=== PATIENT | male | born 1950 | race Caucasian/White ===

== ENCOUNTER 2024-01-07 22:57 | Emergency (ER) | payer MEDICARE, SELFPAY ==
[2024-01-07 23:10] VITALS: BP 85/61
[2024-01-07 23:14] LABS: % Basophils 0.6 % (0-2); % Eosinophils 2.3 % (0-6); % Immature Granulocytes 0.3 % (0-0.5); % Lymphocytes 55.1 % (20.5-51.1); % Monocytes 8.4 % (1.7-9.3); % Neutrophils 33.3 % (42.2-75.2); Absolute Basophils 0.1 10^3/uL (0-0.2); Absolute Eosinophils 0.3 10^3/uL (0-0.7); Absolute Lymphocytes 6.4 10^3/uL (1.2-3.4); Absolute Neutrophils 3.9 10^3/uL (1.4-6.5); Hematocrit 48.3 % (39.0-52.0); Hemoglobin 15.6 g/dL (13.0-18.0); Mean Corp Hgb Conc. 32.3 g/dL (33.0-37.0); Mean Corpuscular Volume 86.7 fL (80.0-94.0); Mean Platelet Volume 10.4 fL (7.4-10.4); Nucleated Red Blood Cells % 0 % (-); Platelet Count 246 10^3/uL (130-400); Red Blood Cell Count 5.57 10^6/uL (4.70-6.10); White Blood Cell Count 11.7 10^3/uL (4.8-10.8)
[2024-01-07 23:15] VITALS: BP 45/14
[2024-01-07 23:24] VITALS: BP 221/137
[2024-01-07 23:26] VITALS: BP 215/124
[2024-01-07 23:30] VITALS: BP 193/152
[2024-01-07 23:30] LABS: ALT (SGPT) 24 U/L (0-50); AST (SGOT) 36 U/L (17-59); Albumin 5.2 g/dl (3.5-5.0); Alkaline Phosphatase 128 U/L (38-126); Blood Urea Nitrogen 38 mg/dl (9-20); Calcium 9.4 mg/dl (8.4-10.2); Carbon Dioxide 18 mmol/L (22-30); Chloride 106 mmol/L (98-107); Glucose 265 mg/dl (70-99); Potassium 4.2 mmol/L (3.5-5.1); Sodium 139 mmol/L (135-145); Total Bilirubin 0.6 mg/dl (0.2-1.3); eGFR 39.75
[2024-01-07 23:41] LABS: NT-proBNP 1310 pg/ml; Troponin I 0.107 ng/ml
--- NOTE | 2024-01-07 23:58 | ED.GENMED ---
History of Present Illness
<Alcides Moffett, DO - Last Filed: 01/09/24 22:42>
General
Chief Complaint: Breathing Problem
Source: family and ambulance crew
Exam Limitations: clinical condition
Time Seen by Provider: 01/07/24 23:00
Nursing documentation reviewed up to this point in time: agreed with
Travel History
Have you had any contact with someone who has COVID-19?: Unable to Answer
Do you have any symptoms of coronavirus? Fever > 100 degrees, chills, cough, shortness of breath, sore throat, loss of taste or smell, muscle aches, or headache?: Unable to Answer
History of Present Illness
History of Present Illness:
73-year-old male presents with worsening dyspnea for the last 3 days. Son states that the shortness of breath waxed and waned but tonight it was severe. They called 911. Upon arrival EMS found the patient tripoding, his oxygenation approximately
70% on room air. Patient extremely diaphoretic. He was put on CPAP and route to the hospital but that did not help. Upon arrival patient was very dyspneic, gasping for air. He was quickly switched to BiPAP which helped slightly. Son arrived and
was able to tell us that patient was a full code and he stated patient would not want intubation. We prepared for rapid sequence intubation. Respiratory at the bedside, suction and hand, patient's mouth was full of foam. Through extensive
suctioning, we were able to get the intubation. Patient went into cardiac arrest during the intubation. He received epinephrine and bicarb. He was cardioverted for V. tach. See procedure note for full details of the arrest. When patient was
stabilized, he was brought over to CAT scan for a stat PE study. We did start heparin for suspicion of PE. CT scan showed Large bilat consolidation prob pneumonia, edema less likely but does have interstitial edema. No dissection. Intraosseous
placed in the left tibial plateau for extra access. Right IJ central line placed. We began cooling protocol.
Son states that patient has hypertension and hyperlipidemia. He is 'prediabetic '. Son states that patient is on '15 medications 'he is unsure of what they are. He will try to get us a list.
Vital signs are unstable. Patient hypoxic
Nursing note reviewed. I agree with nursing documentation up to this point in time.
Home Meds and allergies reviewed.
NUMBER AND COMPLEXITY OF PROBLEMS ADDRESSED AT THE ENCOUNTER
� Chronic conditions affecting care: ACS
� Acute Exacerbation and/or Progression of Chronic Illness:
� Differential Diagnosis includes: CHF, pneumonia, pulmonary embolus, ACS
AMOUNT AND/OR COMPLEXITY OF DATA TO BE REVIEWED AND ANALYZED
I performed an independent evaluation of the following and my interpretation is:
EKG: Numerous amounts of V. tach on the monitor.
CT: Large bilat consolidation prob pneumonia, edema less likely but does have interstitial edema. No dissection
CTA CHEST
IMPRESSION:
1. Adequate technical study. No acute pulmonary embolism.
2. No thoracic aortic aneurysm or acute aortic dissection. Dense consolidation in the lung bases and scattered areas of groundglass opacities compatible with infection and/or aspiration. Right main stem intubation. Moderate pulmonary edema
Incidentals:
-Calcified coronary atherosclerosis
- No acute osseous abnormality.
- No acute abnormality within the visualized abdomen.
- No thoracic lymphadenopathy or suspicious lymph nodes.
X-rays: Right mainstem intubation corrected
Ultrasound:
Laboratory Studies: Troponin elevated, proBNP 1300, white blood cell count of 11.7
Other:
Review of other/old records: No old records available
Clinical information was obtained by an independent historian: Son, present at the bedside is able to give some history
Prescriptions/Medications Considered but not given:
Further testing considered but not performed:
RISK OF COMPLICATIONS AND/OR MORBIDITY OR MORTALITY OF PATIENT MANAGEMENT
Social determinants of health affecting care: Good Social Support
Discussion with other providers: Dr. Faust, cardiology aware of patient's condition.
Escalation of care including admission/observation vs risk of discharge considered: Patient will be admitted to the ICU
CRITICAL CARE NOTE:
Critical care statement: A total of 55 minutes of critical care time was provided for this patient. This time is separate from time utilized to perform the aforementioned documented procedures. Aggregate critical care time includes only time
during which I was engaged in work directly related to the patient's care, as described above, whether at the bedside or elsewhere in the Emergency Department.
Total Time (exclusive of procedures):55
Update:
Phy Exam
<Alcides Moffett DO - Last Filed: 01/09/24 22:42>
General Physical Exam
General Presentation: severe distress
General age: appears older than age
General Skin: cyanotic, diaphoretic and mottled
General Habitus: obese
General Mental: other (Obtunded)
General Hydration: appears well hydrated
General Chronic Disability: other (Sternotomy scar)
Cardiovascular Exam
Cardiovascular Exam: tachycardia
Pulmonary Exam
Pulmonary Exam: accessory muscle use and generalized wheezing
Respiratory Effort: poor respiratory effort and tachypnea
Oxygen Status: bagged endotracheal tube, BiPAP, CPAP and ventilator
Respirations: accessory muscle use, labored, moderate effort and retractions
Breath Sounds: Wheeze: generalized
Neurological Exam
Neurological Exam: non verbal
Musculoskeletal Exam
Musculoskeletal Exam: full ROM
Skin Exam
Skin Exam: diaphoresis, mottled and warmth
Psychiatric Exam
Psychiatric Exam: labile
Scores
<Alcides Moffett DO - Last Filed: 01/09/24 22:42>
Heart Failure Risk
Heart Failure Risk Score: Not Applicable
Course
<Alcides Moffett DO - Last Filed: 01/09/24 22:42>
Orders/Labs/Results
Orders:
Orders
01/07/24 22:59
Cardiac Monitoring- Treatment ONCE
IV Insert/Care/Rem.- Treatment PRN
CR Chest Portable - 1 View Urgent
Comment:
Reason For Exam: sob
Reason Study Needs to be Portable: Patient Unstable
O2 Therapy [RESP] Urgent
Titrate/Wean O2 to maintain O2 sat greater than (%): 93
Special Instructions: TO MAINTAIN CONTINOUS PULSE OX SATS > OR = 93%
Pulse Ox/spot Check [RESP] Urgent
Quantity: 1
Special Instructions: ON ROOM AIR
01/07/24 23:01
EKG- Treatment ONCE
ABG [Arterial Blood Gas] Urgent
%Oxygen/Room Air: 75
COVID-19 Antigen Urgent
Source: Nasal Swab
Urinalysis Reflex To Culture Urgent
Date Specimen was Collected: 01/08/24
Time Specimen was Collected: 01:58
Influenza A+B Rapid Molecular Urgent
MAITE Source: Nasal Swab
Specimen Description:
01/07/24 23:09
Complete Blood Count/With Diff Urgent
Comprehensive Metabolic Panel Urgent
Magnesium Urgent
Comment: ADD ON
NT-proBNP Urgent
Troponin I Urgent
01/07/24 23:15
Lactate Level [Lactic Acid] Urgent
Blood Culture Q30M
MAITE Source: Blood/Venous
Specimen Description:
01/07/24 23:26
NORepinephrine 4 MG/250 ML [Levophed] 4 mg in 250 ml .ROUTE .STK-MED
NORepinephrine [Levophed] 4 mg .ROUTE .STK-MED ONE
01/07/24 23:29
Esmolol 2500 mg/250 ml [Brevibloc 2500 mg] 2,500 mg in 250 ml .ROUTE .STK-MED
Heparin 35262 Units/250 ml 25,000 units in 250 ml .ROUTE .STK-MED
01/07/24 23:30
CT Chest Pe Study Urgent
Comment:
Reason For Exam: sob
01/07/24 23:41
Heparin 8,900 units IV NOW STA
01/07/24 23:[address] Non Medication Order As Directed
Physician Order: PTT 6 hours after initial start of Heparin infusion
01/07/24 23:45
Blood Culture Q30M
MAITE Source: Blood/Venous
Specimen Description:
Amiodarone [Cordarone] 900 mg DEXTROSE 5% PVC-free BAG [D5W PVC-free BAG] 500 ml IV PER PROTOCOL
Initial Dose in mg/min:: 1
Duration of initial dose (hours):: 6
Subsequent dose in mg/min:: 0.5
Duration of subsequent dose (hours):: 18
Maximum dose in mg/min:: 1
Hold and notify provider if:: Heart rate < 60 BPM or SBP < 90 mmHg or MAP < 60 mmHg
Heparin 35692 Units/250 ml 25,000 units in 250 ml IV PER PROTOCOL
Weight to be used for heparin protocol in kilograms (kg):: 111
Protocol:: DVT/PE
PTT Goal Range to be used:: PTT 73 to 111 seconds
Order type:: Initial
INITIAL Infusion Dose (UNITS/KG/hr) & then follow protocol:: 18 units/kg/hr
Infusion Dose in UNITS/hr & then follow protocol (UNITS/hr):: 2,000
INFUSION RATE in mL/hr & then follow protocol (mL/hr):: 20
For DVT/PE algorithm, re-bolus for low PTT?: Yes
PTT less than or equal to 64 seconds:: Re-bolus 80 units/kg (max 10,000units). Increase by 500 units/hr
(+ 5mL/hr)
PTT 64.1 to 72.9 seconds:: Re-bolus 40 units/kg (max 5,000 units). Increase by 200 units/hr
(+ 2mL/hr)
PTT 73 to 111 seconds:: Target Range. No change in rate.
PTT 111.1 to 130.9 seconds:: Decrease rate by 200 units/hr (- 2 mL/hr)
PTT 131 to 199.9 seconds:: HOLD for 1 hr. Then decrease by 400 units/hr (- 4mL/hr)
PTT greater than or equal to 200 seconds:: HOLD for 2 hrs & Notify Provider. Then decrease by 500 units/hr
(- 5mL/hr)
Lab follow-up:: Each change, PTT q6h until 2 consecutive are therapeutic. Then
PTT daily.
01/08/24 00:00
Heparin 4,400 units IV PRN PRN
Heparin 8,900 units IV PRN PRN
01/08/24 00:03
Bumetanide [Bumex] 1 mg IV NOW STA
01/08/24 00:11
Piperacillin/Tazo 4.5 Gram [Zosyn] 4.5 gram in 100 ml IV NOW
01/08/24 00:15
Nitroglycerin 100 mg/250 ml [Nitroglycerin Premix] 100 mg in 250 ml IV PER PROTOCOL
Initial dose in mcg/min, then titrate:: 5
Titrate to keep:: MAP 70-100 mmHg
Titrate by mcg/min:: 5 mcg/min, may increase by 10 mcg/min if dose > 20 mcg/min
Frequency of titrations (minutes):: every 3-5 minutes
Maximum dose in mcg/min:: 200
Begin to taper infusion when:: Remained at goal for 2hrs
Taper by mcg/min:: 5 mcg/min
Frequency of taper (minutes) if patient maintains goal:: 30
Taper to off?: Yes
If infusion off & no longer maintaining goal:: Contact Provider
01/08/24 00:17
Chest X-ray Portable [CR Chest Portable - 1 View] Urgent
Comment:
Reason For Exam: line placement
Reason Study Needs to be Portable: Patient Unstable
01/08/24 00:25
Protime/PTT Urgent
01/08/24 00:29
EKG- Treatment ONCE
01/08/24 00:31
Bumetanide [Bumex] 1 mg IV NOW STA
01/08/24 01:17
Lidocaine 2% Mpf [Xylocaine Mpf 2%] 165 mg Pharmacy To Prepare [Call Pharmacy To Prepare] 0 ml IV NOW
01/08/24 01:27
ABG [Arterial Blood Gas] Urgent
%Oxygen/Room Air: hypoxia
01/08/24 01:31
Magnesium Sulfate 2 Gram/50 ml [Magnesium Sulfate] 2 gram in 50 ml IV NOW
01/08/24 01:39
Magnesium Sulfate 2 Gram/50 ml [Magnesium Sulfate] 2 gram in 50 ml .ROUTE .STK-MED
01/08/24 01:41
Add On- LAB Urgent
Comments:: in lab
Tests Added?: magnesium
01/08/24 01:45
Lidocaine 2 Gram/500 ml [Xylocaine 2 Gram] 2,000 mg in 500 ml IV ORDERED RATE
Lidocaine 2 Gram/500 ml [Xylocaine 2 Gram] 2,000 mg in 500 ml IV ORDERED RATE
01/08/24 01:59
Urine Microscopic Reflex Cult Urgent
01/08/24 02:00
Flush (0.9% Sodium Chloride) [Flush (Nss)] See Dose Instructions IV PER PROTOCOL
01/08/24 02:02
Procainamide [Pronestyl] 1,000 mg .ROUTE .STK-MED ONE
01/08/24 02:03
Procainamide [Pronestyl] 1,000 mg .ROUTE .STK-MED ONE
Abnormal Lab Results
01/07/24 01/08/24 01/08/24
23:09 00:07 00:29
WBC 11.7 H 10^3/uL
(4.8-10.8)
MCHC 32.3 L g/dL
(33.0-37.0)
RDW 17.0 H %
(11.5-14.5)
Absolute Lymphs (auto) 6.4 H 10^3/uL
(1.2-3.4)
Absolute Monos (auto) 1.0 H 10^3/uL
(0.1-0.6)
Neutrophils % 33.3 L %
(42.2-75.2)
Lymphocytes % 55.1 H %
(20.5-51.1)
pH 7.10 L*
(7.35-7.45)
pCO2 68 H mmHg
(35-48)
pO2 68 L mmHg
(83-108)
ABG O2 Sat (Measured) 87.5 L %
(94-98)
Carbon Dioxide 18 L mmol/L
(22-30)
BUN 38 H mg/dl
(9-20)
Creatinine 1.8 H mg/dL
(0.7-1.3)
Glucose 265 H mg/dl
(70-99)
Lactic Acid 3.5 H mmol/L
(0.7-2.0)
Magnesium 2.5 H mg/dl
(1.6-2.3)
Alkaline Phosphatase 128 H U/L
(38-126)
Troponin I 0.107 H* ng/ml
Total Protein 9.0 H g/dl
(6.3-8.2)
Albumin 5.2 H g/dl
(3.5-5.0)
Ur Occult Blood Reflex
Urine RBC
Urine Bacteria (Reflex)
Urine Albumin (Reflex)
01/08/24 01/08/24
01:27 01:59
WBC
MCHC
RDW
Absolute Lymphs (auto)
Absolute Monos (auto)
Neutrophils %
Lymphocytes %
pH 7.20 L
(7.35-7.45)
pCO2 61 H mmHg
(35-48)
pO2 61 L mmHg
(83-108)
ABG O2 Sat (Measured) 85.4 L %
(94-98)
Carbon Dioxide
BUN
Creatinine
Glucose
Lactic Acid
Magnesium
Alkaline Phosphatase
Troponin I
Total Protein
Albumin
Ur Occult Blood Reflex 4+ A
(Negative)
Urine RBC 30-40 A /HPF
(0-2)
Urine Bacteria (Reflex) Few A
(Negative)
Urine Albumin (Reflex) 2+ A
(Neg - Trace)
01/07/24 23:09
01/07/24 23:09
Vital Signs
Initial and Last Documented VS:
Initial Vital Signs
Pulse Resp Pulse Ox
150 46 78
01/07/24 23:00 01/07/24 23:00 01/07/24 23:00
Last Documented Vital Signs
Pulse Resp BP Pulse Ox
58 33 87/18 66
01/08/24 02:10 01/08/24 02:15 01/08/24 02:10 01/08/24 02:15
<Lenny Randolph MD - Last Filed: 01/08/24 03:18>
Orders/Labs/Results
Orders:
Orders
01/07/24 22:59
Cardiac Monitoring- Treatment ONCE
IV Insert/Care/Rem.- Treatment PRN
CR Chest Portable - 1 View Urgent
Comment:
Reason For Exam: sob
Reason Study Needs to be Portable: Patient Unstable
O2 Therapy [RESP] Urgent
Titrate/Wean O2 to maintain O2 sat greater than (%): 93
Special Instructions: TO MAINTAIN CONTINOUS PULSE OX SATS > OR = 93%
Pulse Ox/spot Check [RESP] Urgent
Quantity: 1
Special Instructions: ON ROOM AIR
01/07/24 23:01
EKG- Treatment ONCE
ABG [Arterial Blood Gas] Urgent
%Oxygen/Room Air: 75
COVID-19 Antigen Urgent
Source: Nasal Swab
Urinalysis Reflex To Culture Urgent
Date Specimen was Collected: 01/08/24
Time Specimen was Collected: 01:58
Influenza A+B Rapid Molecular Urgent
MAITE Source: Nasal Swab
Specimen Description:
01/07/24 23:09
Complete Blood Count/With Diff Urgent
Comprehensive Metabolic Panel Urgent
Magnesium Urgent
Comment: ADD ON
NT-proBNP Urgent
Troponin I Urgent
01/07/24 23:15
Lactate Level [Lactic Acid] Urgent
Blood Culture Q30M
MAITE Source: Blood/Venous
Specimen Description:
01/07/24 23:26
NORepinephrine 4 MG/250 ML [Levophed] 4 mg in 250 ml .ROUTE .STK-MED
NORepinephrine [Levophed] 4 mg .ROUTE .STK-MED ONE
01/07/24 23:29
Esmolol 2500 mg/250 ml [Brevibloc 2500 mg] 2,500 mg in 250 ml .ROUTE .STK-MED
Heparin 46105 Units/250 ml 25,000 units in 250 ml .ROUTE .STK-MED
01/07/24 23:30
CT Chest Pe Study Urgent
Comment:
Reason For Exam: sob
01/07/24 23:41
Heparin 8,900 units IV NOW STA
01/07/24 23:[address] Non Medication Order As Directed
Physician Order: PTT 6 hours after initial start of Heparin infusion
01/07/24 23:45
Blood Culture Q30M
MAITE Source: Blood/Venous
Specimen Description:
Amiodarone [Cordarone] 900 mg DEXTROSE 5% PVC-free BAG [D5W PVC-free BAG] 500 ml IV PER PROTOCOL
Initial Dose in mg/min:: 1
Duration of initial dose (hours):: 6
Subsequent dose in mg/min:: 0.5
Duration of subsequent dose (hours):: 18
Maximum dose in mg/min:: 1
Hold and notify provider if:: Heart rate < 60 BPM or SBP < 90 mmHg or MAP < 60 mmHg
Heparin 26324 Units/250 ml 25,000 units in 250 ml IV PER PROTOCOL
Weight to be used for heparin protocol in kilograms (kg):: 111
Protocol:: DVT/PE
PTT Goal Range to be used:: PTT 73 to 111 seconds
Order type:: Initial
INITIAL Infusion Dose (UNITS/KG/hr) & then follow protocol:: 18 units/kg/hr
Infusion Dose in UNITS/hr & then follow protocol (UNITS/hr):: 2,000
INFUSION RATE in mL/hr & then follow protocol (mL/hr):: 20
For DVT/PE algorithm, re-bolus for low PTT?: Yes
PTT less than or equal to 64 seconds:: Re-bolus 80 units/kg (max 10,000units). Increase by 500 units/hr
(+ 5mL/hr)
PTT 64.1 to 72.9 seconds:: Re-bolus 40 units/kg (max 5,000 units). Increase by 200 units/hr
(+ 2mL/hr)
PTT 73 to 111 seconds:: Target Range. No change in rate.
PTT 111.1 to 130.9 seconds:: Decrease rate by 200 units/hr (- 2 mL/hr)
PTT 131 to 199.9 seconds:: HOLD for 1 hr. Then decrease by 400 units/hr (- 4mL/hr)
PTT greater than or equal to 200 seconds:: HOLD for 2 hrs & Notify Provider. Then decrease by 500 units/hr
(- 5mL/hr)
Lab follow-up:: Each change, PTT q6h until 2 consecutive are therapeutic. Then
PTT daily.
01/08/24 00:00
Heparin 4,400 units IV PRN PRN
Heparin 8,900 units IV PRN PRN
01/08/24 00:03
Bumetanide [Bumex] 1 mg IV NOW STA
01/08/24 00:11
Piperacillin/Tazo 4.5 Gram [Zosyn] 4.5 gram in 100 ml IV NOW
01/08/24 00:15
Nitroglycerin 100 mg/250 ml [Nitroglycerin Premix] 100 mg in 250 ml IV PER PROTOCOL
Initial dose in mcg/min, then titrate:: 5
Titrate to keep:: MAP 70-100 mmHg
Titrate by mcg/min:: 5 mcg/min, may increase by 10 mcg/min if dose > 20 mcg/min
Frequency of titrations (minutes):: every 3-5 minutes
Maximum dose in mcg/min:: 200
Begin to taper infusion when:: Remained at goal for 2hrs
Taper by mcg/min:: 5 mcg/min
Frequency of taper (minutes) if patient maintains goal:: 30
Taper to off?: Yes
If infusion off & no longer maintaining goal:: Contact Provider
01/08/24 00:17
Chest X-ray Portable [CR Chest Portable - 1 View] Urgent
Comment:
Reason For Exam: line placement
Reason Study Needs to be Portable: Patient Unstable
01/08/24 00:25
Protime/PTT Urgent
01/08/24 00:29
EKG- Treatment ONCE
01/08/24 00:31
Bumetanide [Bumex] 1 mg IV NOW STA
01/08/24 01:17
Lidocaine 2% Mpf [Xylocaine Mpf 2%] 165 mg Pharmacy To Prepare [Call Pharmacy To Prepare] 0 ml IV NOW
01/08/24 01:27
ABG [Arterial Blood Gas] Urgent
%Oxygen/Room Air: hypoxia
01/08/24 01:31
Magnesium Sulfate 2 Gram/50 ml [Magnesium Sulfate] 2 gram in 50 ml IV NOW
01/08/24 01:39
Magnesium Sulfate 2 Gram/50 ml [Magnesium Sulfate] 2 gram in 50 ml .ROUTE .STK-MED
01/08/24 01:41
Add On- LAB Urgent
Comments:: in lab
Tests Added?: magnesium
01/08/24 01:45
Lidocaine 2 Gram/500 ml [Xylocaine 2 Gram] 2,000 mg in 500 ml IV ORDERED RATE
Lidocaine 2 Gram/500 ml [Xylocaine 2 Gram] 2,000 mg in 500 ml IV ORDERED RATE
01/08/24 01:59
Urine Microscopic Reflex Cult Urgent
01/08/24 02:00
Flush (0.9% Sodium Chloride) [Flush (Nss)] See Dose Instructions IV PER PROTOCOL
01/08/24 02:02
Procainamide [Pronestyl] 1,000 mg .ROUTE .STK-MED ONE
01/08/24 02:03
Procainamide [Pronestyl] 1,000 mg .ROUTE .STK-MED ONE
Abnormal Lab Results
01/07/24 01/08/24 01/08/24
23:09 00:07 00:29
WBC 11.7 H 10^3/uL
(4.8-10.8)
MCHC 32.3 L g/dL
(33.0-37.0)
RDW 17.0 H %
(11.5-14.5)
Absolute Lymphs (auto) 6.4 H 10^3/uL
(1.2-3.4)
Absolute Monos (auto) 1.0 H 10^3/uL
(0.1-0.6)
Neutrophils % 33.3 L %
(42.2-75.2)
Lymphocytes % 55.1 H %
(20.5-51.1)
pH 7.10 L*
(7.35-7.45)
pCO2 68 H mmHg
(35-48)
pO2 68 L mmHg
(83-108)
ABG O2 Sat (Measured) 87.5 L %
(94-98)
Carbon Dioxide 18 L mmol/L
(22-30)
BUN 38 H mg/dl
(9-20)
Creatinine 1.8 H mg/dL
(0.7-1.3)
Glucose 265 H mg/dl
(70-99)
Lactic Acid 3.5 H mmol/L
(0.7-2.0)
Magnesium 2.5 H mg/dl
(1.6-2.3)
Alkaline Phosphatase 128 H U/L
(38-126)
Troponin I 0.107 H* ng/ml
Total Protein 9.0 H g/dl
(6.3-8.2)
Albumin 5.2 H g/dl
(3.5-5.0)
Ur Occult Blood Reflex
Urine RBC
Urine Bacteria (Reflex)
Urine Albumin (Reflex)
24 01/08/24
01:27 01:59
WBC
MCHC
RDW
Absolute Lymphs (auto)
Absolute Monos (auto)
Neutrophils %
Lymphocytes %
pH 7.20 L
(7.35-7.45)
pCO2 61 H mmHg
(35-48)
pO2 61 L mmHg
(83-108)
ABG O2 Sat (Measured) 85.4 L %
(94-98)
Carbon Dioxide
BUN
Creatinine
Glucose
Lactic Acid
Magnesium
Alkaline Phosphatase
Troponin I
Total Protein
Albumin
Ur Occult Blood Reflex 4+ A
(Negative)
Urine RBC 30-40 A /HPF
(0-2)
Urine Bacteria (Reflex) Few A
(Negative)
Urine Albumin (Reflex) 2+ A
(Neg - Trace)
01/07/24 23:09
01/07/24 23:09
Vital Signs
Initial and Last Documented VS:
Initial Vital Signs
Pulse Resp Pulse Ox
150 46 78
01/07/24 23:00 01/07/24 23:00 01/07/24 23:00
Last Documented Vital Signs
Pulse Resp BP Pulse Ox
58 33 87/18 66
01/08/24 02:10 01/08/24 02:15 01/08/24 02:10 01/08/24 02:15
Procedures
<Alcides Moffett DO - Last Filed: 01/09/24 22:42>
Intubations
Procedure completed by: Myself
Method of Intubation: glidescope
Tube size (cm): 8.0
Placement confirmed by: CXR, placement corrected (Right mainstem intubation corrected) and direct visualization
Breath sounds after intubation: equal
Intubation complications: apparent aspiration
Additional information:
Extensive suctioning oral secretions
<Lenny Randolph MD - Last Filed: 01/08/24 03:18>
Central Line
Right Internal jugular:
Indication for procedure:: cooling, cardiac arrest
Procedure completed by: Lenny Randolph MD
Consent form signed: No
If no, reason: Emergency procedure
Anesthesia: 1% Lidocaine
Central line lumen: triple
Number of attempts: 1
Central line complications: none
Sterile dressing applied?: Yes
X-ray: shows good placement
IV Access
Indication: Emergent access required
Performed by:: Lenny Randolph MD
Site:: right pretibial
Gauge:: 15G IO
<Lenny Randolph MD - Last Filed: 01/08/24 03:18>
*Critical Care Note
Total Time (30-74mins, 75-104mins- exclusive of procedures): 49
comment:
Lenny Randolph MD--I was directly at bedside aiding with critical care
Critical care statement: A total of 49 minutes of critical care time was provided for this patient. This includes management of unstable vital signs, evaluation of the patient at bedside, frequent reassessment, discussion with
consultants/hospitalist, and review of pertinent medical records. This time was separate from time utilized to perform any aforementioned documented procedures
<Alcides Moffett DO - Last Filed: 01/09/24 22:42>
Update Note
Update Note:
01/08/2024 014 AM: Dr. Faust present at bedside
<Lenny Randolph MD - Last Filed: 01/08/24 03:18>
Update Note
Update Note:
01/08/2024 014 AM: Dr. Faust present at bedside
UPDATE (Lenny Randolph MD)
I assisted Dr. Moffett at bedside with procedures, CPR, cardioversion/defibrillation due to the acuity of the patient's illness. After arrival cardiology at bedside with myself, admitting hospitalist, fx artist at bedside patient was treated
with multiple medications including procainamide, amiodarone, lidocaine and was cardioverted multiple times for refractory ventricular tachycardia. Patient very difficult to oxygenate with frothy secretions requiring high levels of PEEP to maintain
adequate saturations. Unfortunately patient ultimately had another cardiac arrest this time PEA arrest requiring CPR. ACLS initiated and after 10 minutes of CPR patient persistently with wide-complex bradycardic agonal rhythm on the monitor with
no pulses. Patient was pronounced at 2:17 AM by myself with cardiology and hospitalist at bedside. Family at bedside with him. Discussed with ME ([facility]), patient released by ME.
ED Attending Note
<Alcides Moffett, DO - Last Filed: 01/09/24 22:42>
-
Portions of this chart may have been created with voice recognition software.� Occasional wrong word or��sound alike� substitutions may have occurred due to the inherent limitations of voice recognition software.
Discharge Plan
Departure
Patient Disposition:
Date of Disposition: 01/08/24
Time of Disposition: 00:31
Admit to: ICU
Discharge Problem:
Pneumonia, VENTILATOR DEPENDENT RESPIRATOR FAILURE, Cardiac arrest, Acute respiratory distress syndrome (ARDS), Ventricular tachycardia
Prescriptions:
No Action
furosemide 40 mg Tablet
40 mg PO DAILY
acetaminophen 325 mg Tablet
650 mg PO Q4H PRN (Reason: mild pain / fever)
metoprolol tartrate 100 mg Tablet
100 mg PO BID
clopidogrel 75 mg Tablet
75 mg PO DAILY
pantoprazole 40 mg Tablet,Delayed Release (Dr/Ec)
40 mg PO BID
nitroglycerin 0.6 mg Tablet, Sublingual
0.6 mg SUBLINGUAL Q5-15M PRN (Reason: chest pain)
aspirin 81 mg Tablet,Chewable
81 mg PO DAILY
allopurinol 300 mg Tablet
300 mg PO DAILY
lisinopril 5 mg Tablet
5 mg PO DAILY
rosuvastatin 40 mg Tablet
40 mg PO DAILY
omega-3 acid ethyl esters [Lovaza] 1 gram Capsule
2 cap PO BID
icosapent ethyl 1 gram Capsule
2 g PO BID
Referrals:
UNKNOWN - PT DOES,NOT KNOW [Family Provider] -
Interventions
Interventions:
*Risk Screen - Suicide Last Done: 01/07/24 23:00
*General Assessment Last Done: 01/07/24 23:00
*Neglect/Abuse Screening Last Done: 01/07/24 23:00
*ED COVID-19 Vaccine History Last Done: 01/07/24 23:00
*Nursing Disposition Last Done: 01/08/24 03:15
ED- Cardiac Assessment Last Done: 01/08/24 00:29
ED- Pulmonary Assessment Last Done: 01/08/24 00:29
Discharge Date and Time
Discharge Date/Time: 01/08/24 04:00
[2024-01-08] VITALS (24 sets, daily range): BP systolic 86–195; BP diastolic 18–105
[2024-01-08] MEDS: CORDARONE 518 MG IV (00:05)
[2024-01-08] MEDS: HEPARIN 8900 UNITS IV (00:11)
[2024-01-08] MEDS: NITROGLYCERIN PREMIX 250 IV (00:13)
[2024-01-08 00:24] LABS: B.E. -9.7 mmol/L; HCO3 21.1 mmol/L (21-28); O2 Saturation % 87.5 % (94-98); PCO2 68 mmHg (35-48); PO2 68 mmHg (83-108)
[2024-01-08] MEDS: HEPARIN 25000 UNITS/250 ML IV (00:32)
[2024-01-08] MEDS: ZOSYN 100 IV (00:33)
[2024-01-08 00:46] LABS: INR 1.04; PT 13.4 Sec (11.4-14.6)
[2024-01-08] MEDS: BUMEX 1 MG IV (00:55)
[2024-01-08 00:58] LABS: COVID-19 Antigen Negative (Negative)
[2024-01-08 01:00] LABS: Lactic Acid 3.5 mmol/L (0.7-2.0)
[2024-01-08 01:33] LABS: B.E. -5.3 mmol/L; HCO3 23.8 mmol/L (21-28); O2 Saturation % 85.4 % (94-98); PCO2 61 mmHg (35-48); PO2 61 mmHg (83-108)
[2024-01-08] MEDS: XYLOCAINE MPF 2% 8.25 MG IV (01:38)
[2024-01-08] MEDS: MAGNESIUM SULFATE 50 IV (01:46)
[2024-01-08] MEDS: XYLOCAINE 2 GRAM 500 IV (01:48)
[2024-01-08 02:15] LABS: Magnesium 2.5 mg/dl (1.6-2.3)
--- NOTE | 2024-01-08 02:32 | CON.CAR ---
Consultation
Consultation Request
Date/Time Consultation Requested: 01/08/2024 1: 00
Date/Time Consultation Performed: 01/08/2024 1: 30
Requesting Provider: Zuhair
Performing Provider: Govind
Reason for Consultation: Refractory ventricular tachycardia status post cardiac arrest
Medical History
-
Chief Complaint: Shortness of breath
History of Present Illness:
Kyaw has a history of coronary disease status post three-vessel bypass in 2008 at present [facility] followed by Dr. Chapa. 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 He has known poor circulation to
his legs and also has had a left subclavian stent. He has had stent to an artery in his bowel approximately 3 years ago as well.
He has had worsening shortness of breath over the past 3 days. Tonight he became so short of breath when lying down in bed and try to go outside. Family convinced him to come to the ER.
Pulse ox was 70% in the ER and be patient became severely diaphoretic. He was put on CPAP en route to the hospital this subsequently switched to BiPAP. He subsequent was intubated and went into cardiac arrest during intubation. There was a
suspicion for possible pulm embolism and IV heparin was started. Brief bedside echocardiogram revealed dilated right heart as well. CT of chest revealed large bilateral consolidation felt to be probably pneumonia and an element of interstitial
edema with no dissection or pulmonary embolism noted. He had several cardioversions (possibly 28 shocks ) for ventricular tachycardia. He also received epinephrine as well as bicarbonate. He was given IV lidocaine boluses up to 450 mg and also
started on a lidocaine drip after lidocaine bolus. He subsequent was given procainamide. He then became bradycardic with loss of pulse. CPR was again performed and code was subsequently called. Family was kept aware of progress throughout the
cardiac arrest.
Past Medical History
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
Past Surgical History: Other (Status post three-vessel CABG [facility] in 2008, status post stent to artery and valve 3 years ago. Left subclavian stent for)
Social History
Tobacco: Former Smoker (Smoked approxi-30 years up to 2 to 3 packs/day. Stopped in 2008 at the time of CABG)
Alcohol: Occasional
Drug: None
Personal:
Living: With Family
Employment: Retired
Family History
Family History: Other (There is no family history of CAD. Mother of kidney failure)
Allergies / Home Medications
Allergy/AdvReac Type Severity Reaction Status Date / Time
No Known Allergies Allergy Unverified 01/07/24 23:52
Medication Instructions Recorded Confirmed Type
acetaminophen 325 mg tablet 650 mg PO Q4H PRN mild pain / fever 01/08/24 01/08/24 History
allopurinol 300 mg tablet 300 mg PO DAILY 01/08/24 01/08/24 History
aspirin 81 mg chewable tablet 81 mg PO DAILY 01/08/24 01/08/24 History
clopidogrel 75 mg tablet 75 mg PO DAILY 01/08/24 01/08/24 History
furosemide 40 mg tablet 40 mg PO DAILY 01/08/24 01/08/24 History
icosapent ethyl 1 gram capsule 2 g PO BID 01/08/24 01/08/24 History
lisinopril 5 mg tablet 5 mg PO DAILY 01/08/24 01/08/24 History
metoprolol tartrate 100 mg tablet 100 mg PO BID 01/08/24 01/08/24 History
nitroglycerin 0.6 mg sublingual 0.6 mg sublingual Q5-15M PRN chest 01/08/24 01/08/24 History
tablet pain
omega-3 acid ethyl esters 1 gram 2 cap PO BID 01/08/24 01/08/24 History
capsule (Lovaza)
pantoprazole 40 mg tablet,delayed 40 mg PO BID 01/08/24 01/08/24 History
release
rosuvastatin 40 mg tablet 40 mg PO DAILY 01/08/24 01/08/24 History
Review of Systems
-
History Source: Family
All other systems: Negative unless noted
Constitutional: No Symptoms
EENT: No Symptoms
Respiratory: Trouble Breathing
Cardiac: No Symptoms
Abdomen/GI: No Symptoms
: No Symptoms
Musculoskeletal: Other (History of poor circulation in legs)
Skin: No Symptoms
Neurological: No Symptoms
Endocrine: No Symptoms
Hematologic/Lymphatic: No Symptoms
Physical Exam
Vital Signs
Pulse Resp BP Pulse Ox
181 32 143/82 95
01/08/24 01:55 01/08/24 01:55 01/08/24 01:55 01/08/24 01:50
General: Intubated and sedate
Neck: Supple, no JVD, HJR, carotids +2 B/L, no bruits bilaterally.
Heart: Non displaced PMI, RRR, no murmurs, No S3, S4, no rubs.
Lungs: Scattered rhonchi
Abdomen: Normal bowel sounds, soft, non-tender, non-distended.
Extremities: No clubbing, cyanosis or edema bilaterally.
Neuro: Intubated and sedate.
Lab Results
01/07/24 23:09
01/07/24 23:09
Troponin I 0.107 ng/ml H* 01/07/24 23:09
[id number] Pept 1310 pg/ml 01/07/24 23:09
Impression / Plan
-
Impression:
Status post cardiac arrest in the setting of hypoxemia
Refractory ventricular tachycardia that was monomorphic and unresponsive to amiodarone and lidocaine and subsequently was given procainamide
Acute CHF unknown type
Acute renal insufficiency with creatinine of 1.8 on admission
Elevated lactic acid
Troponin of 0.107/nonischemic myocardial injury
History of three-vessel CABG 2008 at [facility]
History of 2 leaky valves per family with possible procedure plan
History of vascular disease status post left subclavian stent and stent to artery and bowel with known poor circulation in legs
Plan:
Pulse ox was 70% in the ER and be patient became severely diaphoretic. He was put on CPAP en route to the hospital this subsequently switched to BiPAP. He subsequent was intubated and went into cardiac arrest during intubation. There was a
suspicion for possible pulm embolism and IV heparin was started. Brief bedside echocardiogram revealed dilated right heart as well. CT of chest revealed large bilateral consolidation felt to be probably pneumonia and an element of interstitial
edema with no dissection or pulmonary embolism noted. He had several cardioversions (possibly 28 shocks ) for ventricular tachycardia. He also received epinephrine as well as bicarbonate. He was given IV Amiodarone boluses up to 450 mg and also
started on a lidocaine drip after lidocaine bolus. He subsequent was given procainamide. He then became bradycardic with loss of pulse. CPR was again performed and code was subsequently called. Family was kept aware of progress throughout the
cardiac arrest.
Critical care time 70 minutes
Data Reviewed
-
EKG: Tracing Personally Visualized and interpreted
Radiology: Report Reviewed by me
CT Scan: Report Reviewed by me
Medical Tests (Nuc Med, Echo etc): Report Reviewed by me
Labs: Labs Reviewed by me
Old Records: Reviewed
[2024-01-08 02:43] LABS: Urine Albumin 2+ (Neg - Trace); Urine Bilirubin Negative (Negative); Urine Character Slightly Cloudy (Clear); Urine Color Yellow; Urine Glucose Negative (Negative); Urine Ketone Negative (Negative); Urine Leukocyte Negative (Negative); Urine Nitrite Negative (Negative); Urine Occult Blood 4+ (Negative); Urine Specific Gravity 1.015 (<1.030); Urine Urobilinogen Negative (Neg - 1+)
[2024-01-08 02:54] LABS: Urine Bacteria Few (Negative); Urine Red Blood Cell 30-40 /HPF (0-2); Urine Squamous Cell 0-2 /LPF (Few)
--- NOTE | 2024-01-08 03:08 | EDRN ---
Pt arrived in respiratory distress on BiPap with SpO2 levels in the 70s. Pt had a lot of frothy pink tinged sputum. Dr. Moffett and Dr. Agustín Smith. at bedside. Pt was given etomidate 20mg and Vecuronium 10mg @ 2310 suction was needed for intubation
and 8 ETT was placed with b/l breath sounds, color change CXR confirmed placement. Pt lost pulses @ 2313 and CPR was done for 10 mins, Pt in vtach and was shocked (see code sheet). Pt was shocked a total of 28 times for vtach 2 360 each time. Pt
Sons and @ bedside, Pt started to become manpreet in 30s and pulses lost again, CPR started 0207, rhythm PEA with CPR in progress and 4 epi, bicarb and atropine given. Pt asysole and time of called 0217. [facility] called 0300 and Pt
candidate for eyes, tissue and skin. info given Lillianaranza Álvarez [phone]
== END 2024-01-08 04:00 | disposition expired ==
LOC: EMR 22:57
PROVIDERS: Emergency Medicine; EMERGENCY PHYSICIAN Student in an Organized Health Care Education/Training Program; OTHER PHYSICIAN Internal Medicine Cardiovascular Disease
DX: J18.9 Pneumonia, unspecified organism (principal); I46.9 Cardiac arrest, cause unspecified; I47.20 Ventricular tachycardia, unspecified; J80 Acute respiratory distress syndrome; I10 Essential (primary) hypertension; Z11.52 Encounter for screening for COVID-19; Z99.11 Dependence on respirator [ventilator] status; Z87.891 Personal history of nicotine dependence
CPT/HCPCS: 36556; 99291; 99292; 92960; 31500; 96365; 96367; 96375 ×4; 96376; 71045; 71275; 80053; 81003; 81015; 82805; 83605; 83735; 83880; 84484; 85025; 85610; 85730; 87040; 87147; 87205; 87502; 87811; 94002; Q9967